=== PATIENT | female | born 1990 | race Caucasian/White ===

== ENCOUNTER 2018-05-21 18:47 | Emergency (ER) | payer OTHER ==
[~2018-05-21] VITALS: Ht 160 cm; Wt 94.3 kg
--- NOTE | 2018-05-21 18:50 | NUR ---
PT BIB FAMILY TO ER BED 14. WOKE UP AT AROUND 1500 W/ L ELBOW PAIN. ALSO C/O FEVER. HX OF RHEUMATOID ARTHRITIS. GOWNED AND PLACED ON MONITOR. FEELING HOT. [employer]ACHYCARDIC INSTRUCTOR DANCING. AWAITING MD BROWN.
--- NOTE | 2018-05-21 19:20 | NUR ---
KAJAL GOLDMAN AT BEDSIDE FOR EVAL.
[2018-05-21] MEDS ORDERED: LIDOCAINE 1%-EPI 1:100,000 20 ML VIAL ONE (19:29)
--- NOTE | 2018-05-21 19:39 | NUR ---
IV LINE STARTED BLOOD DRAWN AND SENT TO LAB.
[2018-05-21 19:46] LABS: BASOPHILS # (AUTO) 0.6 /CMM (0.0-0.2); BASOPHILS % (AUTO) 2.8 % (0.0-2.0); EOSINOPHILS % (AUTO) 0.3 % (0.0-6.0); HEMATOCRIT 44 % (33-45); HEMOGLOBIN 14.8 g/dL (11.5-14.8); LYMPHOCYTES # (AUTO) 1.9 /CMM (0.8-4.8); LYMPHOCYTES % (AUTO) 9.3 % (20.0-44.0); MEAN CORPUSCULAR HEMOGLOBIN 27 PG (26.0-33.0); MEAN CORPUSCULAR HGB CONC 34 g/dl (31.0-36.0); MEAN CORPUSCULAR VOLUME 80 fL (82-100); MONOCYTES # (AUTO) 0.6 /CMM (0.1-1.30); MONOCYTES % (AUTO) 3.1 % (2.0-12.0); NEUTROPHILS # (AUTO) 17.5 /CMM (1.8-8.9); NEUTROPHILS % (AUTO) 84.5 % (43.0-81.0); PLATELET COUNT (AUTO) 233 /CMM (150-450); RDW COEFFICIENT OF VARIATION 14.3 (11.5-15.0); RED BLOOD CELL COUNT(AUTO) 5.52 MIL/uL (4.0-5.2); WHITE BLOOD COUNT (AUTO) 20.7 K/uL (4.3-11.0)
[2018-05-21] MEDS ORDERED: MORPHINE SULFATE INJ 4 MG/ML DISP.SYRIN ONE ×2 (19:50→23:13)
[2018-05-21] MEDS ORDERED: MORPHINE SULFATE INJ 2 MG/ML DISP.SYRIN ONE (19:50)
[2018-05-21] MEDS ORDERED: ONDANSETRON HCL/PF 4 MG/2 ML VIAL ONE (19:50)
[2018-05-21] MEDS ORDERED: KETOROLAC TROMETHAMINE 15 MG/ML VIAL ONE (19:50)
[2018-05-21] MEDS: IV NS 0.9% 1,000 ML BAG IV ONE ×2 (19:50→21:40)
[2018-05-21 20:01] LABS: INR 0.92 (0.85-1.15)
[2018-05-21 20:03] LABS: ALANINE AMINOTRANSFERASE 57 U/L (12-78); ALBUMIN 3.7 g/dL (3.4-5.0); ALKALINE PHOSPHATASE 101 U/L (46-116); ASPARTATE AMINOTRANSFERASE 35 U/L (15-37); BILIRUBIN,DIRECT 0.1 mg/dL (0.0-0.2); BILIRUBIN,TOTAL 0.4 mg/dL (0.2-1.0); CALCIUM, SERUM 10.1 mg/dL (8.5-10.1); CARBON DIOXIDE 26 mmol/L (21-32); CHLORIDE 99 mmol/L (98-107); CREATININE 0.9 mg/dL (0.6-1.3); GLUCOSE 254 mg/dL (74-106); POTASSIUM 3.6 mmol/L (3.5-5.1); SODIUM SERUM 133 mmol/L (136-145); UREA NITROGEN, BLOOD 9 mg/dL (7-18)
[2018-05-21] MEDS: ONDANSETRON HCL/PF 4 MG/2 ML VIAL IV ONE (20:06)
[2018-05-21] MEDS: MORPHINE SULFATE INJ 2 MG/ML DISP.SYRIN IV ONE ×2 (20:07→23:20)
[2018-05-21] MEDS: KETOROLAC TROMETHAMINE INJ 30 MG/ML VIAL IV ONE (20:08)
[2018-05-21 20:09] LABS: APPEARANCE,URINE Clear (CLEAR); BILIRUBIN,URINE Negative (NEGATIVE); BLOOD, URINE Negative Ery/uL (NEGATIVE); COLOR,URINE Yellow (YELLOW); KETONES,URINE Negative (NEGATIVE); LEUKOCYTE ESTERASE ,URINE Negative (NEGATIVE); NITRITE, URINE Negative (NEGATIVE); PH,URINE 5.5 (5.0-8.0); PROTEIN,URINE Negative (NEGATIVE); UGLUCOSE 500 MG/DL mg/dL (NEGATIVE); UROBILINOGEN,URINE 0.2 EU/dL (0.2)
[2018-05-21] MEDS: PIPERACILLIN /TAZOBACTAM 3.375 G in IV D5W 50 ML IV ONE (20:14)
[2018-05-21] MEDS: LIDOCAINE HCL/PF 1% 30 ML VIAL TP ONE (20:15)
[2018-05-21] MEDS: VANCOMYCIN 1 GM in IV D5W 250 ML IV ONE (20:50)
--- NOTE | 2018-05-21 21:25 | NUR ---
CALLED ADMITTING TO TELL THEM PT IS STABLE FOR TRANSFER
--- NOTE | 2018-05-21 21:50 | NUR ---
IV VANCO INFUSED- END TIME 0.
--- NOTE | 2018-05-21 22:19 | NUR ---
CALLED [phone], AT [facility], TRANSFERRED CALL TO KAJAL GOLDMAN.
--- NOTE | 2018-05-21 22:26 | NUR ---
PAGED ([facility]) [phone]
[2018-05-21 22:27] VITALS: BP 95/60
--- NOTE | 2018-05-21 22:59 | NUR ---
CALLED ([facility]), TRANSFERRED CALL TO KAJAL HERNANDEZ)
--- NOTE | 2018-05-21 23:20 | NUR ---
PT C/O L ELBOW PAIN STATING MEDICINE IS WEARING OFF. KAJAL GOLDMAN MADE AWARE. MORPHINE 4MG IVP ORDERED AND CARRIED OUT.
--- NOTE | 2018-05-21 23:25 | NUR ---
FAXED [facility], . AMBULANCE AUTH GIVEN FOR WHEN IT IS NEEDED: [id number]
--- NOTE | 2018-05-21 23:47 | NUR ---
REPORT TO CHARGE NURSE TRENT FOR HAL.
[2018-05-22] MEDS: ONDANSETRON HCL/PF 4 MG/2 ML VIAL IV ONE (00:01)
--- NOTE | 2018-05-22 01:40 | NUR ---
CALL FROM [facility], PT ACCEPTED BY DR VICTORIA, ROOM [phone]. # FOR REPORT [phone].
--- NOTE | 2018-05-22 02:18 | NUR ---
REPORT GIVEN TO MERRY GUERRERO FOR CONTINUATION OF CARE.
--- NOTE | 2018-05-22 02:18 | NUR ---
LOLLY AT BEDSIDE FOR TRANSPORT TO [facility].
== END 2018-05-22 02:29 | disposition short-term general hospital (02) ==
LOC: ER 18:50
DX: M00.822 Arthritis due to other bacteria, left elbow (principal); E11.9 Type 2 diabetes mellitus without complications; M06.9 Rheumatoid arthritis, unspecified
CPT/HCPCS: 36415; 71045-TC; 73070-TC; 80048-TC; 80076-TC; 80305; 81000-TC; 82962-TC; 83605-TC; 84703-TC; 85025-TC; 85652-TC; 85730-TC; 86140-TC; 87040-TC; 87081-TC; A4606; A6403; J1885; J2270; J2405; J2543; J3370; J3490; J7030; J7060; Z7610